=== PATIENT | female | born 1950 | race Caucasian/White ===

== ENCOUNTER 2021-10-15 13:21 | Inpatient (IN) | payer MEDICARE ==
[~2021-10-15] VITALS: Ht 162.6 cm; Wt 65.3 kg
[2021-10-15 13:28] VITALS: BP 121/52
[2021-10-15] MEDS ORDERED: PAIN RELIEVER325 MG PO (13:58)
[2021-10-15] MEDS ORDERED: ASCORBIC ACID500 MG PO (13:58)
[2021-10-15] MEDS ORDERED: REMERON15 M2 PO (13:59)
[2021-10-15] MEDS ORDERED: PROTONIX40 M2 PO (13:59)
[2021-10-15] MEDS ORDERED: ONE-DAILY MULT1 EAC1 PO (13:59)
[2021-10-15] MEDS ORDERED: MIRALAX119 GM PO (13:59)
[2021-10-15] MEDS ORDERED: ZOSYN 3.373.375 GM/1 IV (14:00)
[2021-10-15 15:07] LABS: ABSOLUTE NEUTROPHILS 4.6 thou/uL (1.4-8.2); BASOPHILS 0.5 % (0.0-2.0); EOSINOPHILS 7.4 % (0.0-3.0); HEMATOCRIT 24.3 % (37.0-47.0); HEMOGLOBIN 8.3 gm/dL (12.0-15.0); LYMPHOCYTES 21.9 % (24.0-44.0); MCH 29.5 pg (26.0-34.0); MCHC 34.1 g/dL (28.0-37.0); MCV 86.5 fL (80.0-100.0); MONOCYTES 6.5 % (1.0-8.0); PLATELET COUNT 291 thou/uL (150-400); POLYS 63.7 % (36.0-66.0); RBC 2.81 mil/uL (4.20-5.00); WBC 7.3 thou/uL (4.0-11.0)
[2021-10-15 15:49] LABS: CALCIUM 7.6 mg/dL (8.5-10.1); CREATININE 1.7 mg/dL (0.6-1.0)
[2021-10-15 15:54] LABS: ALBUMIN 1.2 g/dL (3.4-5.0); TOTAL BILIRUBIN 0.1 mg/dL (0.2-1.0); TOTAL PROTEIN 4.7 g/dL (6.4-8.2)
[2021-10-15 17:58] LABS: % SATURATION 23 % (20-39); IRON 25 ug/dL (50-170); TIBC 109 ug/dL (250-450)
[2021-10-15 18:19] LABS: FOLIC ACID 2.8 ng/mL (8.6-58.9)
[2021-10-15 19:23] VITALS: BP 113/51
[2021-10-15 19:47] VITALS: BP 155/68
[2021-10-16 07:11] VITALS: BP 119/49
--- NOTE | 2021-10-16 08:53 | NUR ---
ASSUMED CARES AT 1940, PT A & OX4, COMPLIANT TO CARE, REPORTS NO PAIN OR DISCOMFORT, TOLARATED MEDICATIONS WELL NO ADVERSE REACTION NOTED, EATS AND DRINKS ADEQUATELY, BLOOD SUGAR LOW, PROTOCOL INITIATED, EFFECTIVE, CALL LIGHT WITHIN REACH, ORIENTED TO ROOM, WILL CONTINUE TO MONITOR.
[2021-10-16 09:00] LABS: HEMATOCRIT 23.9 % (37.0-47.0); HEMOGLOBIN 7.7 gm/dL (12.0-15.0); MCH 27.9 pg (26.0-34.0); MCHC 32.1 g/dL (28.0-37.0); MCV 86.8 fL (80.0-100.0); RBC 2.75 mil/uL (4.20-5.00); RDW 16.8 % (10.5-14.5); WBC 8.5 thou/uL (4.0-11.0)
[2021-10-16 09:13] LABS: CALCIUM 7.8 mg/dL (8.5-10.1); CREATININE 1.6 mg/dL (0.6-1.0); POTASSIUM 4.2 mmol/L (3.5-5.1)
[2021-10-16 09:16] LABS: ALBUMIN 1.2 g/dL (3.4-5.0); PHOSPHORUS 2.4 mg/dL (2.5-4.9)
--- NOTE | 2021-10-16 10:15 | HC ---
[facility] [address] [address] CONSULTATION Name: PAYTON MEZA Room #: 450-P ADM IN M.R.#: [id number] Admission: 10/15/21 Attend Phys: Jadyn Stover Discharge: Date of : 54 Report #: [id number] THIS REPORT FOR: cc: FLAKITO - Family physician unknown FLAKITO - Family physician unknown Natanael Rivas MD ~ DATE OF SERVICE: 10/16/2021 INFECTIOUS DISEASE CONSULTATION ATTENDING PHYSICIAN: Dr. Stover. REASON FOR EVALUATION: Vertebral osteomyelitis, chronic decubitus ulcer. HISTORY OF PRESENT ILLNESS: Chart reviewed. The patient examined. A 71-year-old woman, apparently with limited mobility, has known peripheral vascular disease. Apparently, it is difficult to ascertain details of her history, but apparently was hospitalized at another acute care facility, diagnosed with osteomyelitis involving her vertebra, does have a chronic sacral wound. She was discharged on parenteral therapy I believe with Zosyn. Awaiting for those records. She admits to significant amount of pain associated with the site. Not clear if she has had any recent fevers, chills. She was not happy with the facility. Her evaluation suggests she may benefit from diverting colostomy. It is one of the reasons for the transfer. She notes she has had a poor appetite and a 30-pound weight loss. Denies significant pulmonary related complaints. Does note she has a chronic indwelling suprapubic catheter dating back 5 years. Evaluation in the ER, chest x-ray showed some pulmonary infiltrates in the bases. Coronavirus testing was negative. Lactic acid of 0.9. Sed rate of 67, creatinine 1.7, albumin 1.2. Blood cultures collected since admission are sterile thus far. She was empirically started on combination therapy with vancomycin and cefepime. ALLERGIES: None known. CURRENT MEDICATIONS: Include vancomycin, ascorbic acid, cefepime, pantoprazole, mirtazapine, enoxaparin, hydrocodone, zolpidem. I doubt ondansetron as needed. PAST MEDICAL HISTORY: As described above, history of depression, reflux, renal lithiasis, chronic renal insufficiency, peripheral vascular disease, chronic sacral decubitus ulcer, vertebral osteo, chronic anemia. SOCIAL HISTORY: Nonsmoker, no ethanol, no illicit drug use. FAMILY HISTORY: Noncontributory. REVIEW OF SYSTEMS: Otherwise, unremarkable. [address] [address] CONSULTATION Name: PAYTON MEZA Room #: [facility] IN M.R.#: [id number] Admission: 10/15/21 Attend Phys: Jadyn Stover Discharge: Date of : 54 Report #: [id number] PHYSICAL EXAMINATION: GENERAL: She is alert, cooperative. She is mildly encephalopathic, chronically ill-appearing and undernourished. VITAL SIGNS: Temperature 97.7, pulse 89, respirations 16, blood pressure 119/49. SKIN: Warm, dry, no rashes. HEENT: Otherwise, unremarkable. Normocephalic. Extraocular muscles intact. NECK: Supple. LUNGS: Bibasilar crackles. HEART: Regular. I do not appreciate a murmur. ABDOMEN: Soft, nontender. Suprapubic catheter in place. SKIN: Sacral ulcer stage IV, perhaps is a little bit of a fissure, I cannot palpate bone. Some moderate degree of inflammation. There is no particular odor. There is some soiling of the wound due to some diarrhea. LABORATORY DATA: Blood cultures sterile thus far. Ferritin 391. Iron 25. Electrolytes: Sodium 138, potassium 3.0, chloride 106, bicarbonate is 21, anion gap of 11, BUN and creatinine 21 and 1.7, glucose 130, AST of 20, ALT of 20, albumin 1.2, total protein is 4.7. CBC: White count of 7.3, H 8.3 and 24.3, platelets of 291. ASSESSMENT AND PLAN: Vertebral osteomyelitis in a setting of a chronic sacral decubitus ulcer. It is not entirely clear as what the etiology is. We will to try to obtain records including recent imaging studies and cultures. We will continue empiric broad-spectrum therapy including cefepime and vancomycin pending further information. Wound care as prescribed. Clearly, one of her issues primarily is really poor nutritional status. We will try to optimize her situation. Add incentive spirometry. Wound care as prescribed. <ELECTRONICALLY SIGNED> By: Natanael Rivas MD 10/16/21 1015 [id number] Natanael Rivas MD /nt
[2021-10-16 15:38] VITALS: BP 115/55
--- NOTE | 2021-10-16 17:44 | NUR ---
Pt A & O x4. Pt VS stable. Pt wound dressed this shift. Pt worked with PT/Ot this shift. pt is room air. Pt received medications as ordered. Pt is x1 assist with ADLs and cares. Pt is able to make needs known
[2021-10-16 19:30] VITALS: BP 135/62
[2021-10-16 20:43] VITALS: BP 135/62
--- NOTE | 2021-10-17 04:56 | NUR ---
ASSUMED CARE AT 1900, PT LAYING COMFORTABLE, REPORTS NO PAIN, COMPLIANT TO TX, NO ADVERSE REACTION NOTED, CALL LIGHT WITHIN REACH, WOUND TX IN PLACE WILL CONTINUE TO MONITOR.
[2021-10-17 07:19] VITALS: BP 116/71
[2021-10-17 13:24] LABS: HEMATOCRIT 21.6 % (37.0-47.0); HEMOGLOBIN 7.2 gm/dL (12.0-15.0); MCH 28.8 pg (26.0-34.0); MCHC 33.6 g/dL (28.0-37.0); MCV 85.6 fL (80.0-100.0); RBC 2.52 mil/uL (4.20-5.00); RDW 16.2 % (10.5-14.5); WBC 6.4 thou/uL (4.0-11.0)
--- NOTE | 2021-10-17 15:22 | HC ---
[facility] [address] [place] [address] CONSULTATION Name: PAYTON MEZA Room #: 450-P ADM IN M.R.#: [id number] Admission: 10/15/21 Attend Phys: Jadyn Stover Discharge: Date of : 54 Report #: [id number] THIS REPORT FOR: cc: FAM - Family physician unknown FAM - Family physician unknown Manny Mondragon MD ~ DATE OF SERVICE: 10/16/2021 WOUND CARE CONSULTATION NOTE REASON FOR CONSULTATION: Sacral stage IV pressure ulcer with possible osteomyelitis, fecal incontinence, requiring diverting colostomy. HISTORY OF PRESENT ILLNESS: The patient is a 71-year-old woman with chronic kidney disease and fecal incontinence, who is suffering from a large chronic sacral stage IV pressure ulcer with possible osteomyelitis. This ulcer is quite large and nonhealing. She has trouble with incontinence of loose stools, swelling of the wound. Dr. Cristobal of General Surgery has been consulted and plans to make a surgical colostomy during this admission. MRI lumbar spine was obtained that showed osteomyelitis in the past. Wound care was consulted. PAST MEDICAL HISTORY: Chronic kidney disease; anemia; hypoalbuminemia, severe protein calorie malnutrition, albumin 1.2; renal insufficiency. MEDICATIONS: Include intravenous vancomycin and cefepime. PHYSICAL EXAMINATION: GENERAL: Shows a chronically ill woman who is alert, pleasant, conversant. HEENT: Mucous membranes moist. NECK: Supple. LUNGS: Respirations unlabored. ABDOMEN: Soft. EXTREMITIES: Examination of the patient's back shows a large well demarcated 10 x 8 x 5 cm deep sacral pressure sore with bone at the base, clinical osteomyelitis. Wound primarily occurs with chronic granulation tissue. We will order-strength Dakin's packs. IMPRESSION: 1. Large sacral stage 4 pressure ulcer with osteomyelitis by MRI. 2. Fecal incontinence, swelling of the wound. 3. Severe protein calorie malnutrition, albumin 1.2. 4. Chronic kidney disease. PLAN: Wound care with quarter-strength Dakin's packing with a large Kerlix packing twice daily, cover with ABD and tape. Due to the patient's severe malnutrition, albumin 1.2, admit to Dr. Cristobal, consider discussing PEG [address] [address] CONSULTATION Name: PAYTON MEZA Room #: 450-P ADM IN M.R.#: [id number] Admission: 10/15/21 Attend Phys: Jadyn Stover Discharge: Date of : 54 Report #: [id number] feeding tube at the time of colostomy creation for fecal diversion. Offload with low air loss mattress. Wound care team will follow. <ELECTRONICALLY SIGNED> By: Manny Mondragon MD 10/17/21 1522 1325 23 Manny Mondragon MD /nt
--- NOTE | 2021-10-17 16:49 | NUR ---
Pt A & O x4. Pt VS stable. Pt received medications as ordered. Pt wound dressing changed this shift. Pt is able to make needs known. Pt is incontinent of bowel. Pt is x 1 assist with ADLs and cares.
[2021-10-17 17:06] VITALS: BP 123/92
--- NOTE | 2021-10-17 17:11 | NUR ---
Pt refused BS this evening.
[2021-10-17 19:30] VITALS: BP 133/75
[2021-10-18 04:44] VITALS: BP 111/55
--- NOTE | 2021-10-18 05:33 | NUR ---
ASSUMED CARES AT 1900, PT LAYING COMFORTABLY IN BED, WOUND TX COMPLETED, TALERATE MEDICATIONS WELL, COMPLIANT TO CARE, NO ADVERSE REAACTION NOTED, REPORTS NO PAIN, SLEPT THROUGH THE NIGHT, WILL CONTINUE TO MONITOR
[2021-10-18 07:00] VITALS: BP 108/62
[2021-10-18 08:11] LABS: ALBUMIN 1.1 g/dL (3.4-5.0); CALCIUM 7.6 mg/dL (8.5-10.1); CREATININE 1.5 mg/dL (0.6-1.0); PHOSPHORUS 2.4 mg/dL (2.6-4.7); POTASSIUM 4.2 mmol/L (3.5-5.1)
--- NOTE | 2021-10-18 09:57 | NUR ---
Nutrition: Folate 2.8. REC order folic acid for deficiency. Also recommend daily MVI for wound healing needs/ pt refusal of supplements.
--- NOTE | 2021-10-18 14:39 | NUR ---
PT ADMITTED RELATED TO DECUBITUS ULCER. CM REVIEWED CHART AND SPOKE WITH CARE TEAM. CM MET WITH PT AT BEDSIDE THIS DAY. PT APPEARED TO BE A&O X2. CM ROLE INTRODUCED. PT INDICATED SHE HAD BEEN AT [facility] PRIOR TO ADMISSION. SHE INDICATED SHE HAD BEEN AT [facility] AND AT A [facility] WELL. PT STATED THAT BEFORE ALL THAT SHE HAD BEEN LIVING IN A HOUSE ALONE. SHE INDICATED SHE HAD A FWW FOR ASSISTANCE WITH AMBULATION BUT THAT SHE HADN'T REALLY BEEN WALKING AT THE [facility]. PT INDICATED HER FIRST COUSIN JESSENIA MAJANO IS THE BEST CONTACT FOR HER. CM CALLED [facility] AND THEY INDICATED THAT PT HAD ADMITTED TO THEM FROM [facility] AND THAT SHE HAD BEEN THERE FOR 2-3 DAYS BEFORE COMING HERE FOR POSSIBLE PEG AND COLOSTOMY PLACEMENT. CM CALLED JESSENIA MAJANO COUSIN AT AND SHE INDICATED THAT SHE IS PT'S DPOA. SHE WILL BRING IN DOCUMENT. PT AND COUSIN INDIICATED THEY HOPE THAT PT WILL BE ABLE TO RETURN TO [facility] TO RESUME SKILLED REHAB ONCE MEDICALLY STABLE. PT TO HAVE PEG AND COLOSTOMY PLACED TOMORROW. CM TO SEND CLINICAL UPDATED TO [facility]. CM FOLLOWING REGARDING DC PLANNING.
[2021-10-18 14:40] VITALS: BP 130/67; BP 132/82
--- NOTE | 2021-10-18 15:55 | NUR ---
WOUND CONSULT; ROUNDING WITH [employer] TODAY. THE WOUND IS A PALE RED. NO ODOR. WOUND MEANSURES 14 X 6 X 3. PATIENT HAS A LOW AIR LOSS PUMP. DISCUSSED WITH CHERYL.
[2021-10-18 17:00] VITALS: BP 118/61
--- NOTE | 2021-10-18 19:37 | NUR ---
Assumed pt care at 7am.Pt in bed resting without c/o.Assessment completed.vss. Dr Cristobal and Jolanta here,order noted.Pt off npo and surgery rescheduled for tomorrow am.1 unit prbc given today. Wound vac placed by by Abelino navarro later this afternoon. Pt family here,updates given. Report off to josh navarro.
[2021-10-18 20:27] LABS: HEMATOCRIT 26.7 % (37.0-47.0)
[2021-10-18 20:30] VITALS: BP 148/85
[2021-10-18 20:34] LABS: HEMOGLOBIN 9.3 gm/dL (12.0-15.0)
[2021-10-19 06:52] LABS: HEMATOCRIT 26.4 % (37.0-47.0); HEMOGLOBIN 8.7 gm/dL (12.0-15.0); MCHC 33.1 g/dL (28.0-37.0); MCV 87.6 fL (80.0-100.0); RBC 3.01 mil/uL (4.20-5.00); RDW 16.7 % (10.5-14.5); WBC 8.3 thou/uL (4.0-11.0)
[2021-10-19 07:05] LABS: ALBUMIN 1.2 g/dL (3.4-5.0); CALCIUM 7.7 mg/dL (8.5-10.1); CREATININE 1.4 mg/dL (0.6-1.0); PHOSPHORUS 2.5 mg/dL (2.5-4.9)
--- NOTE | 2021-10-19 07:09 | NUR ---
RECEIVED CARE OF THIS PATIENT AT 1900. PATIENT ALERT AND ORIENTED X4, UP WITH ASSIST. ACCUCHECK WAS 85, NO COVERAGE GIVEN. PICC OSCAR WITH FLUIDS INFUSING. NPO SINCE OR FOR SURGERY TODAY. DENIES PAIN. SLEPT OFF AND ON DURING NIGHT.
[2021-10-19 15:30] VITALS: BP 132/75
--- NOTE | 2021-10-19 16:15 | NUR ---
PT WENT FOR LAP SIGMOIDECTOMY THIS DAY AND WOUND VAC PLACEMENT. CM SENT CLINICAL UPDATE TO [facility]. PT AND DPOA COUSIN WANTING FOR PT TO RETURN TO [facility] TO RESUME SKILLED SERVICES ONCE MEDCIALLY STABLE AWITING THERAPY EVAL.
--- NOTE | 2021-10-19 18:25 | NUR ---
PT ON CONTACT ISOLATION. HAD LAPAROSCOPIC COLOSTOMY WITH WOUND VAC PLACEMENT. PT HAS FOUR LAP SITE WITH DEMABOND AND STRIP STRIPS. COLOSTOMY IS INTACT. WOUND VAC IN PLACE. DENIES HAVING PAIN OR DISCOMFORT. NO CONCERNS AT THIS TIME.
[2021-10-19 19:27] VITALS: BP 112/60
--- NOTE | 2021-10-20 06:00 | NUR ---
Pt. rested quietly during the night when checked on during frequent rounds. She offers no c/o pain. Colostomy has some formed brown stool and liquid blood. Lapsites to abdomen are intact. She offers no c/o pain or nausea. Bed alarm is on.
[2021-10-20 06:44] LABS: ALBUMIN 1.1 g/dL (3.4-5.0); CALCIUM 7.8 mg/dL (8.5-10.1); CREATININE 1.3 mg/dL (0.6-1.0); POTASSIUM 4.1 mmol/L (3.5-5.1)
[2021-10-20 07:00] VITALS: BP 112/61
--- NOTE | 2021-10-20 10:32 | NUR ---
WOUND CARE F/U; ROUNDING WITH [employer] [facility] [employer]. THE VAC WAS REAPPLIED YESTERDAY THEREFORE WE WILL NOT REMOVE IT TODAY. THE VAC DRESSING IS STABLE A FUNCTION WNL. DISCUSSED WITH RN.
--- NOTE | 2021-10-20 14:02 | NUR ---
ASSUMED PT CARE THIS AM. PT A&OX4, ABLE TO MAKE NEEDS KNOWN. PATIENT REPORTING PAIN THAT DECREASES WITH PAIN MEDICATION GIVEN PER EMAR. IV REMAINS PATENT, SALINE LOCKED. PATIENT HAS A COLOSTOMY IN PLACE, DRAINING WITHOUT ISSUE. PATIENT HAS A SUPRAPUBIC CATHETER IN PLACE DRAINING YELLOW URINE. WOUND VAC SUCTIONING WITHOUT ISSUE. LAP SITES TO ABDOMEN ARE INTACT WITH NO DRAINAGE NOTED. PATIENT ON ROOM AIR. MEDICATIONS TAKEN WITHOUT ISSUE. FALL PRECAUTIONS ARE IN PLACE, CALL LIGHT WITHIN REACH.
--- NOTE | 2021-10-20 15:34 | NUR ---
PT AND OT EVALED THIS DAY. CM FAXED CLINICAL UPDATE TO [facility] AND ASKED THAT THEY SUBMIT FOR INSURANCE AUTH FOR POSSIBLE DC IN 24-48HRS. SHOULD AUTH BE OBTAINED CONTACT NORMA AT FAX ORDERS TO . CM FOLLOWING REGARDING DC PLANNING.
[2021-10-20 16:00] VITALS: BP 114/57
[2021-10-20 19:17] VITALS: BP 122/69
[2021-10-21 06:11] LABS: CALCIUM 7.9 mg/dL (8.5-10.1); CREATININE 1.4 mg/dL (0.6-1.0); POTASSIUM 4.1 mmol/L (3.5-5.1)
[2021-10-21 07:00] VITALS: BP 111/71
--- NOTE | 2021-10-21 07:21 | NUR ---
ASSUMED CARE OF PT AT 1900. PT ASSESSED TO BE AOX4 71F WITH DECUBITOUS ULCER. PT RESTED THROUGHOUT THE NIGHT IN ROOM WITH NO COMPLAINTS, VSS. CHANGED COLOSTOMY BAG IN AM DUE TO LEAKAGE. WILL CONT TO MONITOR
[2021-10-21 11:00] VITALS: BP 137/75
--- NOTE | 2021-10-21 11:57 | NUR ---
ASSUMED PT CARE THIS AM. PT A&OX3, ABLE TO MAKE NEEDS KNOWN. PATIENT REPOTING NO PAIN. PATIENT NOTED TO HAVE SOME NAUSEA, MEDICATED PER EMAR. PATIENT LAP SITES ARE INTACT. COLOSTOMY WITH BROWN STOOL NOTED. SUPRAPUBIC CATHETER DRAINING YELLOW URINE. WOUND VAC IN PLACE SUCTIONING WITHOUT ISSUE. PATIENT IS ON ROOM AIR. FALL PRECAUTIONS ARE IN PLACE, CALL LIGHT WITHIN REACH.
[2021-10-21 15:30] VITALS: BP 114/50
[2021-10-21 21:10] VITALS: BP 125/54
[2021-10-22 04:26] VITALS: BP 112/52
--- NOTE | 2021-10-22 05:39 | NUR ---
ASSUMED CARE OF PT AT 1900. PT ASSESSED TO BE AOX4 71F WITH SACRAL ULCER. PT RESTED THROUGHOUT THE NIGHT WITH NO COMPLAINTS, VSS. NO PAIN, STABLE ON ROOM AIR. OSTOMY EMPTIED THROUGHOUT THE NIGHT, CATHETER PATENT. WET TO DRY DRESSING ON SACRUM INTACT, CHANGED FROM WOUND VAC DUE TO LACK OF SUPPLIES. WILL CONT TO MONITOR.
[2021-10-22 08:03] LABS: ABSOLUTE NEUTROPHILS 4.1 thou/uL (1.4-8.2); EOSINOPHILS 11.8 % (0.0-3.0); HEMATOCRIT 26.5 % (37.0-47.0); HEMOGLOBIN 8.4 gm/dL (12.0-15.0); LYMPHOCYTES 24.2 % (24.0-44.0); MCH 28.6 pg (26.0-34.0); MCHC 31.8 g/dL (28.0-37.0); MCV 89.9 fL (80.0-100.0); MONOCYTES 7.4 % (1.0-8.0); POLYS 54.6 % (36.0-66.0); RBC 2.95 mil/uL (4.20-5.00); RDW 17.5 % (10.5-14.5); WBC 7.6 thou/uL (4.0-11.0)
[2021-10-22 08:12] LABS: PLATELET COUNT 566 thou/uL (150-400)
[2021-10-22 08:13] LABS: ALBUMIN 1.1 g/dL (3.4-5.0); CALCIUM 7.6 mg/dL (8.5-10.1); CREATININE 1.3 mg/dL (0.6-1.0); POTASSIUM 4.4 mmol/L (3.5-5.1); TOTAL BILIRUBIN 0.2 mg/dL (0.2-1.0); TOTAL PROTEIN 4.2 g/dL (6.4-8.2)
[2021-10-22 08:24] VITALS: BP 128/67
[2021-10-22] MEDS ORDERED: FERREX 150 PLU1 EAC1 PO (09:20)
[2021-10-22] MEDS ORDERED: GENTAMICIN IV (09:20)
--- NOTE | 2021-10-22 12:18 | NUR ---
PT DISCHARGING TODAY BACK TO [facility] FAXED DC ORDERS/SUMMARY TO FACILITY RECEIVED CONFIRMATION AND SPOKE WITH NORMA SHE ARRANGED WC VAN FOR [phone] TODAY. SPOKE WITH PT'S FAMILY JESSENIA SHE IS AWARE OF DC AND TIME OF TRANSPORT SHE IS GOING TO CALL PT'S NURSE FOR A MEDICAL UPDATE. UNIT NOTIFIED OF TIME OF TRANSPORT AND CHART COPY PER US. RN TO CALL REPORT TO [phone].
--- NOTE | 2021-10-22 13:31 | NUR ---
PT ALERT AND ORIENTED TIMES FOUR. VSS. DENIES PAIN/SOA. PT TOLERATES MEDS AND MEALS. WOUND TO SACRUM CHAGNED WET TO DRY. PLANS FOR DISCHARGE TODAY. WILL CONTINUE TO MONITOR.
--- NOTE | 2021-10-25 12:27 | O ---
[facility] [address] [place] [address] OPERATIVE REPORT Name: PAYTON MEZA Room #: 450-[facility] IN M.R.#: [id number] Admission: 10/15/21 Attend Phys: Jadyn Stover Discharge: 10/22/21 Date of : 54 Report #: [id number] THIS REPORT FOR: cc: FAM - Family physician unknown FAM - Family physician unknown Caleb Cristobal MD ~ DATE OF SERVICE: 10/19/2021 PREOPERATIVE DIAGNOSIS: Sacral ulceration with incontinence, with need for fecal diversion. POSTOPERATIVE DIAGNOSIS: Sacral ulceration with incontinence, with need for fecal diversion. OPERATIONS: 1. Laparoscopic end colostomy. 2. Placement of negative pressure wound therapy device in sacrum measuring 12 x 10 cm. SURGEON: Caleb Cristobal MD ANESTHESIA: General. ESTIMATED BLOOD LOSS: Minimal. SPECIMENS: None. DESCRIPTION OF PROCEDURE: After informed consent was obtained, the patient was brought to the operating room and placed supine. SCDs were placed and working, preoperative antibiotics were administered, general anesthesia was induced. The abdomen was then prepped and draped in the usual sterile fashion. A Veress needle was inserted in the left upper quadrant and pneumoperitoneum was established. I placed an upper quadrant 5 mm trocar under direct vision. I then placed a 12 mm trocar at the exit site for the colostomy in the left rectus sheath just below the umbilicus. A right lower quadrant 12 mm trocar was placed. Camera was inserted. The patient was placed in the right side down position. I then grasped the sigmoid colon. I retracted it medially. The white line of Toldt was incised and this allowed for medial mobilization of the sigmoid colon. It was somewhat redundant and there was good length on the sigmoid colon to reach up to the colostomy exit site. I made a window in the sigmoid colon. This was about the mid sigmoid colon. I made a window in the mesocolon. I then transected the colon with a single fire of the DAQUAN blue load 75 stapler. I then brought out the proximal end through the exit site of the colostomy. [facility] [address] [place] [address] OPERATIVE REPORT Name: PAYTON MEZA Room #: 450-P [facility] IN M.R.#: [id number] Admission: 10/15/21 Attend Phys: Jadyn Stover Discharge: 10/22/21 Date of : 54 Report #: [id number] The exit site of the colostomy skin was grasped. A 2 cm circular incision was made. Fascia was then incised. I then brought out the proximal colon through the incision I had made. The ports were then removed under direct vision. The skin was closed with 4-0 Monocryl. Fascia in the right lower quadrant was closed with a [id number] 0 Vicryl. I then fashioned a colostomy in Marcelina ostomy fashion. This was done with 4-0 Vicryl. Sterile dressings were applied as well as a colostomy appliance. The patient was then placed in the left side down lateral position. I removed all the dressings from the sacral wound. It measured approximately 10 x 12 cm. I inserted a black sponge that was trimmed to fit the area. Cellophane was then placed over this. A cut was made. It was then connected to 125 mmHg suction. COMPLICATIONS: None. DISPOSITION: The patient was taken to recovery in satisfactory condition. <ELECTRONICALLY SIGNED> By: Caleb Cristobal MD 10/25/21 1227 1139 [id number] Caleb Cristobal MD /nt
== END 2021-10-22 13:10 | DRG 981 ==
LOC: ER 13:21 → EROBS 17:14 → 4W 17:14
PROVIDERS: Nurse Practitioner; Nurse Practitioner Family; Specialist; ADMIT Hospitalist; ATTEND Hospitalist
PROC: 30233N1 Transfusion of Nonautologous Red Blood Cells into Peripheral Vein, Percutaneous Approach (ICD-10-PCS; principal; 2021-10-18)
PROC: 2W15X6Z Compression of Back using Pressure Dressing (ICD-10-PCS; 2021-10-18)
PROC: 0D1N4Z4 Bypass Sigmoid Colon to Cutaneous, Percutaneous Endoscopic Approach (ICD-10-PCS; 2021-10-19)
PROC: 05HY33Z Insertion of Infusion Device into Upper Vein, Percutaneous Approach (ICD-10-PCS; 2021-10-19)
DX: L89.154 Pressure ulcer of sacral region, stage 4 (principal); E43 Unspecified severe protein-calorie malnutrition; L03.90 Cellulitis, unspecified; N17.9 Acute kidney failure, unspecified; M46.28 Osteomyelitis of vertebra, sacral and sacrococcygeal region; E87.6 Hypokalemia; I73.9 Peripheral vascular disease, unspecified; F32.A Depression, unspecified; F41.9 Anxiety disorder, unspecified; R15.9 Full incontinence of feces; D50.9 Iron deficiency anemia, unspecified; R39.81 Functional urinary incontinence; Z20.822 Contact with and (suspected) exposure to COVID-19; R53.81 Other malaise; L89.309 Pressure ulcer of unspecified buttock, unspecified stage; N18.2 Chronic kidney disease, stage 2 (mild); Z93.50 Unspecified cystostomy status; Z68.24 Body mass index [BMI] 24.0-24.9, adult; Z87.442 Personal history of urinary calculi
CPT/HCPCS: 10040; 50010; 50101; 50366; 50386; 50555; 50739; 51489; 52265; 52266; 53307; 53310; 56525; 56526; 57092; 58574; 58586; 58867; 58911; 62110; 62900; 70005